=== PATIENT | male | born 1945 | race Caucasian/White ===

== ENCOUNTER 2017-08-27 00:12 | Day surgery (SDC) | payer MEDICARE, BC ==
[~2017-08-27] VITALS: Ht 175.3 cm; Wt 92.5 kg
[~2017-08-27 00:12] MED LIST: ASP325 PO; ASPI500T53 PO; ASPI81TA94 PO; DULO30CA35 PO; DULO60CA56 PO; FLUV80TA PO; GABA-503 PO; GABA-549 PO; GOLYTE PO; HYDR-318 PO; HYDR-393 PO; IBU200 PO; IBUP-56 PO; LOR5 PO; LUTE20TA PO; MULT-865 PO; MULT-977 PO; NAPR-1043 PO; PNEU0.5D3 IM; RELIEF FACTOR; SIMV-54 PO; TRIA15OI20 TP; VAL80 PO; VALS1TAB61 PO; [UNRECOGNIZED DRUG - CODE] PO
[2017-08-27 07:00] VITALS: BP 111/71
[2017-08-27] MEDS ORDERED: PROPOFOL EMUL(*) 10MG/ML 20 ML 20 ML ONE (07:04)
[2017-08-27] MEDS ORDERED: MIDAZOLAM 2 MG/2 ML VIAL IVP ONE (07:30)
[2017-08-27] MEDS ORDERED: NORMOSOL R SOLN(*) 1000 ML BAG 1,000 ML IV PRN (07:30)
[2017-08-27] MEDS ORDERED: LIDOCAINE/SOD BICARB 8.4% SYR ID ONE (07:30)
[2017-08-27 09:12] VITALS: BP 88/49
[2017-08-27 09:15] VITALS: BP 95/54
--- NOTE | 2017-08-27 09:16 | Short(Outpt) Discharge Summary ---
Discharge Summary Reason for Hosp/Final Diag: (1) Colon cancer screening Status: Chronic Hospital Course & Plan: Colonoscopy completed without problems. Departure Discharge to: Home, Self Care Discharge Instructions Home Meds Active Scripts Valsartan (DIOVAN) 80 Mg Tablet, 1 TAB PO QDAY, #90 TAB 3 Refills Prov:LOVE MOSLEY MD 07/30/17 Peg/Electrolytes (GOLYTELY SOLUTION) 4,000 Ml Soln, 1 GAL PO ONCE, #1 GAL 0 Refills Prov:OZZY MARY MD 07/22/17 Acetaminophen/Hydrocodone (HYDROCODON-ACETAMINOPHN 10-325) 1 Each Tab, 1 TAB PO Q6H Y for pain, #120 TAB 0 Refills Prov:LOVE MOSLEY MD 05/20/17 Simvastatin (SIMVASTATIN) 40 Mg Tablet, 1 TAB PO HS, #90 TAB 3 Refills Prov:PILY LIU APRN [employer] 05/15/17 Gabapentin (GABAPENTIN) 600 Mg Tablet, 1 TAB PO TID, #270 TAB PRN Refills Prov:LOVE MOSLEY MD 04/04/17 Reported Medications Triamcinolone Acetonide 0.1% Oint 15 Gm Tube (TRIAMCINOLONE ACETONIDE 0.1% 15 GM TUBE) 15 Gm Oint...g., 15 GM TP PRN, TUBE 08/18/17 Aspirin (ASPIRIN) 81 Mg Tab.chew, 1 TAB PO QDAY, TAB.CHEW 02/09/15 Lutein (LUTEIN) 20 Mg Tablet, 1 TAB PO DAILY 02/07/14 Multivitamin (DAILY MULTIPLE VITAMIN) 1 Each Tablet, 1 TAB PO DAILY 02/07/14 Diet: Regular Activity: As Tolerated Special Instructions: Your colonoscopy was completed without problems and your prep was excellent (Good Job!!). I didn't find any polyps or other abnormalities. I recommend that you have another colonoscopy in 10 years and if that one is normal it could be your last colonoscopy EVER!! OZZY MARY MD Aug 27, 2017 09:16
[2017-08-27 09:30] VITALS: BP 104/58
[2017-08-27 09:36] VITALS: BP 95/69
[2017-08-27 09:38] VITALS: BP 96/69
== END 2017-08-27 09:45 | disposition home or self-care (01) ==
LOC: OR 00:12
PROVIDERS: ATTEND Surgery
DX: Z12.11 Encounter for screening for malignant neoplasm of colon (principal)
CPT/HCPCS: 00812; G0121; J2704